=== PATIENT | male | born 1935 | race Asian ===

== ENCOUNTER 2016-12-13 10:37 | Day surgery (SDC) | payer MEDICARE, OTHER ==
[2016-12-12 11:01] LABS: ADD SCAN DIFF NO
[2016-12-12 11:26] LABS: ALBUMIN 4.1 g/dl (3.3-4.9)
[2016-12-12 11:29] LABS: ADD UMIC YES; BILIRUBIN,INDIRECT 0.2 mg/dl (0-1.1); BILIRUBIN,TOTAL 0.2 mg/dl (0.2-1.3); URINE BILIRUBIN (Dip) NEGATIVE (NEGATIVE); URINE BLOOD (Dip) 2+ (NEGATIVE); URINE COLOR LT. YELLOW (YELLOW); URINE GLUCOSE (Dip) NEGATIVE (NEGATIVE); URINE KETONES (Dip) NEGATIVE (NEGATIVE); URINE LEUKOCYTE ESTERASE (Dip) 1+ (NEGATIVE); URINE NITRITE (Dip) NEGATIVE (NEGATIVE); URINE TOTAL PROTEIN (Dip) NEGATIVE (NEGATIVE); URINE UROBILINOGEN (Dip) 0.2 E.U./dL (0.1-1.0)
[2016-12-12 11:30] LABS: ALBUMIN/GLOBULIN RATIO 1.13; TOTAL PROTEIN 7.7 g/dl (6.1-8.1)
[2016-12-12 11:32] LABS: BASOPHILS % 0.4 % (0.0-2.0); CALCIUM 9.2 mg/dl (8.4-10.2); CREATININE 1.05 mg/dl (0.61-1.24); EOSINOPHILS # 0.2 10^3/ul (0.0-0.5); EOSINOPHILS % 2.3 % (0.0-7.0); HEMATOCRIT 37.2 % (42.0-52.0); HEMOGLOBIN 11.4 g/dl (14.0-18.0); LYMPHOCYTES # 0.9 10^3/ul (0.8-2.9); LYMPHOCYTES % 13.2 % (15.0-51.0); MEAN CORPUSCULAR HEMOGLOBIN 26.3 pg (29.0-33.0); MEAN CORPUSCULAR HGB CONC 30.6 g/dl (32.0-37.0); MEAN CORPUSCULAR VOLUME 85.7 fl (82.0-101.0); MEAN PLATELET VOLUME 10.9 fl (7.4-10.4); MONOCYTE # 0.5 10^3/ul (0.3-0.9); MONOCYTES % 7.7 % (0.0-11.0); NEUTROPHIL # 5.2 10^3/ul (1.6-7.5); NEUTROPHILS % 76.1 % (39.0-77.0); PLATELET COUNT 223 10^3/UL (140-415); POTASSIUM 4.6 mmol/L (3.5-5.1); RED BLOOD COUNT 4.34 10^6/ul (4.70-6.10); RED CELL DISTRIBUTION WIDTH 14.2 % (11.5-14.5); WHITE BLOOD COUNT 6.9 10^3/ul (4.8-10.8)
[2016-12-12 11:47] LABS: INR 0.94; PROTIME 12.6 Sec (12.2-14.2)
[2016-12-12 11:49] LABS: PARTIAL THROMBOPLASTIN TIME 30.9 Sec (25.0-35.0)
--- NOTE | 2016-12-12 12:24 | RADRPT ---
PROCEDURE: XR Chest 1 View. CLINICAL INDICATION: Abnormal breath sounds, preop. TECHNIQUE: AP view of the chest was obtained. COMPARISON: February 06, 2016 FINDINGS: The cardiomediastinal silhouette is within normal limits. The lungs are hyperexpanded. Chronic mild interstitial prominence is seen in both lungs. No consolidations are identified. No pneumothorax i s seen. Calcified granulomatous disease in the left lower lobe is stable. The osseous structures are osteopenic, but appear grossly intact. Surgical clips are identified in the left lower neck. IMPRESSION: Hyperexpanded lungs with chronic mild interstitial prominence in both lungs. Calcified granulomatous disease in the left lower lobe. RPTAT: AA .Riki Bolivar MD, MD Date Time Electronically viewed and signed by .Riki Bolivar MD, on 12/12/2016 12:24 .P/
[2016-12-13] VITALS (19 sets, daily range): BP systolic 162–204; BP diastolic 65–89; PULSE 68–76; RESP 10–21; Ht 170.2 cm; Wt 75.0 kg
[~2016-12-13] VITALS: Ht 170.2 cm; Wt 75.0 kg
[~2016-12-13 10:37] MED LIST: AMLO5TAB4 PO; CARV6.25 PO; CEFAZOLIN 1 GM INJ ONE; CIPR500T4 PO; NATE60TA PO; SEVOFLURANE 15 MIN ONE; SMV40T PO
[2016-12-13] MEDS ORDERED: CARV3.1260 PO (11:13)
--- NOTE | 2016-12-13 12:29 | HPN ---
Date/Time of Note Date/Time of Note DATE: 12/13/16 TIME: 12:28 Interval H&P Admission Note Pt. seen H&P reviewed: No system changes JAZMINE MERRILL MD Dec 13, 2016 12:29
[2016-12-13] MEDS ORDERED: IOHEXOL 300MG/ML 30 ML BTL ONE (12:32)
[2016-12-13] MEDS ORDERED: LIDOCAINE 2% (SDV) 5 ML INJ ONE (12:33)
[2016-12-13] MEDS ORDERED: ETOMIDATE 20 MG INJ ONE (12:33)
[2016-12-13] MEDS ORDERED: FENTAnyl 50 MCG/ML VIAL ONE (12:34)
--- NOTE | 2016-12-13 12:47 | HP ---
DATE OF ADMISSION: 12/13/2016 CHIEF COMPLAINT AND HISTORY OF PRESENT ILLNESS: The patient is a, 81-year-old gentleman with a hist ory of a right ureteral obstruction and hydronephrosis, status post multiple cystoscopies, a history of a right ureteral JJ stent back in February of 2016. The patient has a history of bladder carcinoma, prostate carcinoma, radiation proctitis, hypertension and diabetes, and has remained stable. Patie nt denies any recent chest pain or shortness of breath. The patient is being admitted for removal o f the right ureteral JJ stent, retrograde pyelogram and possible insertion of new JJ stent. The pat ient denied any recent angina or shortness of breath, no reported hypoglycemia, no reported fever or chills. No reported dysuria. Patient does not have an occasional history of hematuria, as well as occasional rectal bleeding. Patient is being followed by Dr. Alvarado for the patient's hepatitis. REVIEW OF SYSTEMS: As above. In addition, no eye discharge or redness. No reported cough, wheezin g, shortness of breath. No reported chest pain or leg edema. No reported nausea or vomiting. No a cute joint pain. No history of recent TIA or CVA. No history of anxiety, no acute rash. PAST MEDICAL HISTORY: As stated above. PAST SURGICAL HISTORY: The patient is status post left carotid endarterectomy and multiple cystosco pies, bladder cancer, and also inguinal hernia repair. SOCIAL HISTORY: The patient is an ex-smoker, quit approximately 6 years ago. FAMILY HISTORY: Noncontributory for the patient's condition. PHYSICAL EXAMINATION: GENERAL: The patient is conscious, awake, alert. VITAL SIGNS: Temperature 98.3, pulse 73, respirations 18, blood pressure 162/74, O2 saturation 98% on room air. HEENT: Atraumatic, normocephalic. Conjunctivae and lids normal. Oropharynx is clear. NECK: Supple. No mass, no thyromegaly. CHEST: Fairly clear. No use of accessory muscles. CARDIOVASCULAR: S1, S2 normal. No murmur, gallop, or rub. ABDOMEN: Soft, nondistended, nontender. Bowel sounds present. EXTREMITIES: No leg edema. NEUROLOGIC: The patient is awake, alert, fairly oriented, with no gross focal deficits. The patie nt does have a hearing deficit. LABORATORY: Labs done yesterday, WBC 6.9, hemoglobin 11.4, platelets 223. Sodium 140, potassium 4.6 , BUN 26, creatinine 1, glucose 102 this morning. Liver enzymes normal. PT, PTT unremarkable. Chest x-ray, calcified granulomatous disease in the left lower lobe. No acute findings. EKG, normal sinus rhythm. No acute ST-T changes. IMPRESSION: 1. Bladder cancer, and being admitted for removal and placement of right ureteral JJ stent. 2. Hypertension. 3. Diabetes mellitus. 4. History of prostate cancer. 5. History of radiation proctitis. PLAN: The patient will be admitted for the above procedure. The patient will be discharged home if there is no complication. If patient gets admitted, he will be started back on Norvasc, Coreg and Starlix, and will put him on sliding scale insulin. The patient is medically cleared for the proced ure. Plan of care discussed with Dr. Brewer. Dictated By: FRENCH REDD/DEVANG Conf#: [id number] DID#: [id number]
[2016-12-13] MEDS ORDERED: HYDROmorphONE (0.2 MG/ML) 10ML SYG IV PRN ×2 (13:30)
[2016-12-13] MEDS ORDERED: INSULIN ASPART [NOVOLOG] 3 ML PEN SC ONE (13:30)
[2016-12-13] MEDS ORDERED: OXYCODONE/ACETAMINOPHEN (5/325) TAB PO PRN ×2 (13:30)
[2016-12-13] MEDS ORDERED: FENTAnyl 50 MCG/ML VIAL IV PRN ×2 (13:30)
[2016-12-13] MEDS ORDERED: LABETALOL HCL 20MG INJ IV PRN (13:30)
[2016-12-13] MEDS ORDERED: HYDROCODONE/APAP (5/325) TAB PO PRN (13:30)
[2016-12-13] MEDS ORDERED: ONDANSETRON 4 MG INJ IV PRN (13:30)
[2016-12-13] MEDS ORDERED: MEPERIDINE 25 MG INJ IV PRN (13:30)
[2016-12-13] MEDS ORDERED: EPHEDrine SULFATE 50 MG/5 ML SYG IV PRN (13:30)
[2016-12-13] MEDS: hydrALAzine 20 MG INJ IV PRN ×3 (13:35→14:22)
--- NOTE | 2016-12-13 14:04 | OPR ---
DATE OF OPERATION: 12/13/2016 PREOPERATIVE DIAGNOSIS: Right hydronephrosis, distal right ureteral narrowing and obstruction. POSTOPERATIVE DIAGNOSIS: Right hydronephrosis, distal right ureteral narrowing and obstruction. OPERATION PERFORMED: Cystoscopy, removal of old JJ stent, right retrograde pyelogram and insertion of right ureteral JJ stent, 6-Swiss x 24 cm long. TECHNIQUE: The patient was brought to the operating room. General anesthesia was induced. Patient was positioned in the lithotomy position. The external genitalia was prepped and draped in the usu al sterile manner. The patient received 2 grams of Ancef IV at the start of the procedure. Time ou t was done. The patient was identified by his name, date, the procedure and the side of the p rocedure. Then, #21 Swiss cystoscope sheath was introduced into the bladder. The distal end of th e right ureteral JJ stent was identified and grasped with a grasper and removed. Then, using a 10-F rench cone tip ureteral catheter, right retrograde pyelogram was done and the contrast went up all t he way to the kidney. The kidney itself and the upper ureter were normal; however, there was hangin g of the contrast material at the lower edge of the sacroiliac joint and the distal ureter appeared to be narrowed. So, I waited and the contrast material would not drain well and it continued hangin g on in the ureter at the lower edge of the sacroiliac joint. Therefore, I decided to go ahead and put a new JJ stent. Therefore, I introduced the open end into the right ureteral orifice and the Gl idewire all the way up to the kidney. Then, on the Glidewire, I advanced a 6-Swiss x 24 cm long JJ stent at its proximal end curling into the kidney and the distal end curling into the bladder. The bladder was then emptied and the patient was transferred to recovery room in stable and satisfactor y condition. Dictated By: JAZMINE MOHAN/DEVANG Conf#: [id number] DID#: [id number]
--- NOTE | 2016-12-13 18:39 | RADRPT ---
PROCEDURE: Intraoperative imaging of the abdomen and pelvis with fluoroscopy. CLINICAL INDICATION: Abdominal pain. Intraoperative. TECHNIQUE: 23 images of the abdomen and pelvis were obtained in the operating room with an image i ntensifier. No radiologist was in attendance. 73.8 seconds of fluoroscopy time was used. COMPARISON: 02/08/2016. FINDINGS: The first images demonstrate a right double pigtail ureteral stent in satisfactory position. Contra st was subsequently injected into the right intrarenal collecting system and images were obtained. There is no filling defect or mass. The final images demonstrate complete removal of the right uret eral stent. IMPRESSION: 1. Satisfactory intraoperative imaging of the abdomen and pelvis. RPTAT: QQ .Ash Medina MD, MD Date Time Electronically viewed and signed by .Ash Medina MD, MD on 12/13/2016 18:38 .R/
--- NOTE | 2016-12-14 20:52 | RADRPT ---
Vent Rate: 59 bpm RR Interval: 0 msec AL Interval: 216 msec QRS Duration: 86 msec QT Interval: 404 msec QTC Interval: 399 msec P-R-T [place]: 67 - 60 - 76 degrees Sinus bradycardia with 1st degree AV block Nonspecific T wave abnormality Abnormal ECG Electronically Signed By: Kavon Sullivan [id number]
== END 2016-12-13 18:42 | disposition home or self-care (01) ==
LOC: SDS 10:37
PROVIDERS: ATTEND Urology
DX: N13.1 Hydronephrosis with ureteral stricture, not elsewhere classified (principal); I10 Essential (primary) hypertension; E11.9 Type 2 diabetes mellitus without complications
CPT/HCPCS: 52332; 71010; 74420; 80053; 81001; 82962; 85025; 85610; 85730; 87086; 93005; C2617; J0360; J0690; J1815; J3010; Q9967; 81003

== ENCOUNTER 2017-07-12 06:17 | Day surgery (SDC) | payer MEDICARE, OTHER ==
[2017-07-05 15:31] LABS: BASOPHILS % 0.6 % (0.0-2.0); EOSINOPHILS # 0.2 10^3/ul (0.0-0.5); HEMATOCRIT 34.7 % (42.0-52.0); HEMOGLOBIN 11.3 g/dl (14.0-18.0); LYMPHOCYTES % 16.1 % (15.0-51.0); MEAN CORPUSCULAR HEMOGLOBIN 27.2 pg (29.0-33.0); MEAN CORPUSCULAR HGB CONC 32.6 g/dl (32.0-37.0); MEAN CORPUSCULAR VOLUME 83.6 fl (82.0-101.0); MEAN PLATELET VOLUME 11.1 fl (7.4-10.4); MONOCYTE # 0.5 10^3/ul (0.3-0.9); MONOCYTES % 8.3 % (0.0-11.0); NEUTROPHIL # 4.6 10^3/ul (1.6-7.5); NEUTROPHILS % 71.7 % (39.0-77.0); PLATELET COUNT 182 10^3/UL (140-415); POSITIVE DIFF @See below; RED BLOOD COUNT 4.15 10^6/ul (4.70-6.10); RED CELL DISTRIBUTION WIDTH 13.8 % (11.5-14.5); WHITE BLOOD COUNT 6.4 10^3/ul (4.8-10.8)
[2017-07-05 15:33] LABS: ADD UMIC YES; UR ASCORBIC ACID NEGATIVE (NEGATIVE); UR BILIRUBIN (Dip) NEGATIVE (NEGATIVE); UR BLOOD (Dip) 2+ mg/dL (NEGATIVE); UR CLARITY CLEAR (CLEAR); UR COLOR YELLOW (YELLOW); UR GLUCOSE (Dip) NEGATIVE (NEGATIVE); UR KETONES (Dip) NEGATIVE (NEGATIVE); UR LEUKOCYTE ESTERASE (Dip) 3+ Leu/ul (NEGATIVE); UR NITRITE (Dip) NEGATIVE (NEGATIVE); UR RBC 34 /HPF (0-5); UR SPECIFIC GRAVITY (Dip) 1.012 (1.003-1.030); UR TOTAL PROTEIN (Dip) 1+ mg/dl (NEGATIVE); UR UROBILINOGEN (Dip) NEGATIVE (NEGATIVE)
[2017-07-05 15:46] LABS: INR 0.9; PARTIAL THROMBOPLASTIN TIME 25.8 Sec (25.0-35.0); PROTIME 12.1 Sec (12.2-14.2); PT RATIO 0.9
[2017-07-05 15:59] LABS: ALBUMIN 4.3 g/dl (3.3-4.9); ALBUMIN/GLOBULIN RATIO 1.34; BILIRUBIN,INDIRECT 0.1 mg/dl (0-1.1); BILIRUBIN,TOTAL 0.1 mg/dl (0.2-1.3); TOTAL PROTEIN 7.5 g/dl (6.1-8.1)
[2017-07-05 16:03] LABS: CALCIUM 9.3 mg/dl (8.4-10.2); CREATININE 1.09 mg/dl (0.61-1.24); POTASSIUM 5.1 mmol/L (3.5-5.1)
--- NOTE | 2017-07-05 16:16 | RADRPT ---
PROCEDURE: XR Chest 1 View. CLINICAL INDICATION: Abnormal breath sounds, preop. TECHNIQUE: AP view of the chest was obtained. COMPARISON: CR CHEST 12/12/2016 FINDINGS: The cardiomediastinal silhouette is within normal limits. Scattered atelectasis is identified in the bilateral lower lungs. No consolidations are identified. No pneumothorax is seen. Calcified granul leola in the left lower lobe is stable. Osseous structures are intact. IMPRESSION: Scattered atelectasis in the bilateral lower lungs. Stable calcified granuloma in the left lower lobe. RPTAT: AA .Riki Bolivar MD, Date Time Electronically viewed and signed by .Riki Bolivar MD, on 07/05/2017 16:15 .P/
[2017-07-11 09:51] VITALS: Ht 175.3 cm; Wt 72.0 kg
[~2017-07-12] VITALS: Ht 175.3 cm; Wt 72.0 kg
[2017-07-12] VITALS (12 sets, daily range): BP systolic 138–183; BP diastolic 66–87; PULSE 60–89; RESP 10–20
[~2017-07-12 06:17] MED LIST changes: +CARV3.1260 PO; -CARV6.25 PO; -CEFAZOLIN 1 GM INJ ONE; -CIPR500T4 PO; -SEVOFLURANE 15 MIN ONE; -SMV40T PO
[2017-07-12] MEDS ORDERED: FAMO20TA18 PO (07:28)
--- NOTE | 2017-07-12 07:39 | HPN ---
Date/Time of Note Date/Time of Note DATE: 07/12/17 TIME: 07:39 Interval H&P Admission Note Pt. seen H&P reviewed: No system changes JAZMINE MERRILL MD Jul 12, 2017 07:39
[2017-07-12] MEDS ORDERED: PROPOFOL 20 ML ONE (07:54)
[2017-07-12] MEDS ORDERED: GLYCOPYRROLATE 0.4 MG INJ ONE (07:54)
[2017-07-12] MEDS ORDERED: NEOSTIGMINE 3 MG/3 ML SYRINGE ONE (07:54)
[2017-07-12] MEDS ORDERED: ROCURONIUM 50 MG INJ ONE (07:54)
[2017-07-12] MEDS ORDERED: FENTAnyl 50 MCG/ML VIAL ONE (07:55)
[2017-07-12] MEDS ORDERED: MIDAZOLAM 1 MG/ML 2 ML INJ ONE (07:55)
[2017-07-12] MEDS ORDERED: DEXAMETHASONE 4 MG/ML 1 ML INJ ONE (07:55)
[2017-07-12] MEDS ORDERED: ONDANSETRON 4 MG INJ ONE (07:55)
[2017-07-12] MEDS ORDERED: CEFAZOLIN 1 GM INJ ONE (07:55)
[2017-07-12] MEDS ORDERED: IOHEXOL 300MG/ML 30 ML BTL ONE (08:08)
[2017-07-12] MEDS ORDERED: SUGAMMADEX SODIUM 200 MG/2 ML VIAL IV ONE (08:34)
--- NOTE | 2017-07-12 08:37 | HP ---
DATE OF ADMISSION: 07/12/2017 HISTORY OF PRESENT ILLNESS: The patient is an 81-year-old gentleman with history of right ureteral obstruction and hydronephrosis, status post multiple cystoscopies and history of right ureteral JJ s tent. The patient has history of bladder cancer and prostate cancer and is status post radiation tr eatment and has radiation proctitis, hypertension and diabetes. The patient was seen by Dr. Brewer recently and is being scheduled for cystoscopy, remove and replacement of right ureteral JJ stent a nd retrograde pyelogram today. The patient denies any chest pain or shortness of breath. No recent fever or chills. The patient has no recent hematuria. The patient has history of recurrent rectal bleed and is being followed by Dr. Brewer for laser treatment. The patient in last few months has had 1 episode of rectal bleed. No reported fever or chills, no reported headache, dizziness, synco pe. No history of any focal neurological symptoms. No history of dysuria. No history of fever or chills. The rest of the review of systems are unremarkable. PAST MEDICAL HISTORY: As stated above. PAST SURGICAL HISTORY: The patient is status post left carotid endarterectomy and multiple cystosco pies for bladder cancer. History of inguinal hernia repair. SOCIAL HISTORY: Ex-smoker, quit approximately 6 to 7 years ago. FAMILY HISTORY: Noncontributory. PHYSICAL EXAMINATION: GENERAL: The patient is conscious, awake, alert. VITAL SIGNS: Stable, afebrile. HEENT: Conjunctivae and lids are normal. Oropharynx clear. NECK: Supple. No mass, no thyromegaly. CHEST: Fairly clear. CARDIOVASCULAR: S1, S2 normal. No murmur, gallop, or rub. ABDOMEN: Soft, nondistended, nontender. Bowel sounds plus. EXTREMITIES: No leg edema. NEUROLOGIC: The patient is awake, alert, fairly oriented with no gross focal deficit. LABORATORY DATA: WBC 6.4, hemoglobin 11.2, platelets 182. Sodium 141, potassium 5.1, BUN 27, creat inine 1, glucose 117, calcium 9.6, AST 22, ALT 20, alkaline phosphatase 64, albumin 4.3. Coagulatio n profile revealed normal PT and PTT. Chest x-ray scattered atelectases in bilateral lower lungs. Stable calcified granuloma in the left lower lobe. IMPRESSION: 1. Right hydronephrosis, distal right ureteral narrowing and obstruction, status post JJ stent plac ement. The patient is being admitted for cystoscopy, removal of old JJ stent, right retrograde pyel ogram and insertion of right ureteral JJ stent. 2. History of bladder cancer and prostate cancer status post radiation treatment. 3. Hypertension. 4. Diabetes. 5. History of carotid stenosis with carotid endarterectomy. PLAN: The patient will be admitted for the above procedure. The patient is clinically stable. Onc e the procedure is done and if there is no complication, the patient will be discharged home. If th e patient does end up staying at the hospital, will start him on sliding scale insulin. Continue am lodipine, carbidopa and Starlix. ALLERGIES: NO KNOWN DRUG ALLERGIES. Dictated By: FRENCH REDD/DEVANG Conf#: [id number] DID#: [id number]
[2017-07-12] MEDS ORDERED: HYDROCODONE/APAP (5/325) TAB PO PRN (09:00)
[2017-07-12] MEDS ORDERED: LABETALOL HCL 20MG INJ IV PRN (09:00)
[2017-07-12] MEDS ORDERED: LABETALOL HCL 20MG INJ ONE (09:02)
--- NOTE | 2017-07-12 09:02 | OPR ---
Date/Time of Note Date/Time of Note DATE: 07/12/17 TIME: 08:57 Operative Report Procedure Date: Jul 12, 2017 Preoperative Diagnosis Right hydronephrosis Postoperative Diagnosis Right hydronephrosis Operation/Procedure Performed Cystoscopy, removal of right ureteral JJ stent, right retrograde pyelogram Surgeon see signature line Locomotive Oiler None Anesthesia Type: general Anesthesiologist: Jose Miguel Pak M.D. Estimated Blood Loss: none Transfusion none Specimen None Grafts/Implants none Complications none Pt Condition Post Procedure: stable Disposition: PACU Indications Right hydronephrosis Procedure Description The patient was brought to the operating room, and given general endotracheal anesthesia. Timeout was done patient was identified by his name birthdate and the procedure on the side of the procedure. The patient was given 2 g of Ancef IV at the start of the procedure. The patient was positioned in the lithotomy position. The genital area was prepped and draped in the usual sterile manner. #21 Maltese cystoscope sheath was introduced under direct vision through the penile urethra all the way to the bladder. The distal end of the old JJ stent was grasped with the grasper and the JJ stent was removed. Then using 8 Maltese cone-tip ureteral catheter a right retrograde pyelogram was done. The distal part of the ureter below the sacroiliac joint area is narrowed and the upper part is completely normal. I did watch the contrast material in the ureter at the level of the sacroiliac joint under fluoroscopy to see if it comes down and it did slowly and with the narrow jet I think the patient may do well without the JJ stent therefore I decided not to put a new one. He will have an ultrasound repeated next week and repeated again in about a month to check for the hydronephrosis and make sure it did not increase. Patient was transferred to the recovery room in a stable and satisfactory condition. JAZMINE MERRILL MD Jul 12, 2017 09:02
--- NOTE | 2017-07-12 12:37 | RADRPT ---
PROCEDURE: Intraoperative imaging of the abdomen and pelvis with fluoroscopy. CLINICAL INDICATION: Abdominal pain. Intraoperative. TECHNIQUE: 13 images of the abdomen and pelvis were obtained in the operating room with an image i ntensifier. No radiologist was in attendance. Fluoroscopy time is 92.6 seconds. COMPARISON: 12/13/2016. FINDINGS: Images demonstrate contrast injected into the right ureter and placement of a right ureteral double pigtail stent. IMPRESSION: 1. Satisfactory intraoperative imaging of the abdomen and pelvis. RPTAT: QQ .Ash Medina MD, MD Date Time Electronically viewed and signed by .Ash Medina MD, MD on 07/12/2017 12:37 .R/
--- NOTE | 2017-07-13 15:02 | RADRPT ---
Vent Rate: 61 bpm RR Interval: 0 msec ID Interval: 216 msec QRS Duration: 90 msec QT Interval: 408 msec QTC Interval: 410 msec P-R-T [place]: 66 - 68 - -39 degrees Sinus rhythm with 1st degree AV block Nonspecific ST and T wave abnormality Abnormal ECG No previous tracing available for comparison Electronically Signed By: Yosef Hicks [id number]
== END 2017-07-12 12:15 | disposition home or self-care (01) ==
LOC: SDS 06:17
PROVIDERS: ATTEND Urology
DX: N13.30 Unspecified hydronephrosis (principal); Z87.891 Personal history of nicotine dependence; I10 Essential (primary) hypertension; E11.9 Type 2 diabetes mellitus without complications; Z85.51 Personal history of malignant neoplasm of bladder; Z85.46 Personal history of malignant neoplasm of prostate; Z92.3 Personal history of irradiation
CPT/HCPCS: 52310; 71010; 74420; 80053; 81001; 82962; 85025; 85610; 85730; 87086; 93005; J0690; J1100; J2250; J2405; J3010; Q9967; J2710